=== PATIENT | female | born 1950 | race Caucasian/White ===

== ENCOUNTER 2021-10-08 17:37 | Emergency (ER) | payer MEDICARE ==
[~2021-10-08] VITALS: Ht 154.9 cm; Wt 64.4 kg
[2021-10-08] MEDS ORDERED: JANTOVEN5 MG PO (17:47)
[2021-10-08] MEDS ORDERED: CHILDREN'S ASPI81 M1 PO (17:47)
[2021-10-08] MEDS ORDERED: CALCIUM 500 +1 EACH PO (17:48)
[2021-10-08] MEDS ORDERED: LIPITOR40 MG PO (17:48)
[2021-10-08] MEDS ORDERED: LISINOPRIL20 MG PO (17:48)
[2021-10-08] MEDS ORDERED: TOPROL XL100 MG PO (17:49)
[2021-10-08] MEDS ORDERED: OMEPRAZOLE40 MG PO (17:49)
[2021-10-08] MEDS ORDERED: PROAIR HFA8.5 GM INH (17:49)
[2021-10-08 21:10] LABS: ABSOLUTE BASOPHILS 0.1 thou/uL (0.0-0.2); ABSOLUTE EOSINOPHILS 0.2 thou/uL (0.0-0.7); ABSOLUTE LYMPHOCYTES 1.8 thou/uL (0.8-5.3); ABSOLUTE MONOCYTES 0.6 thou/uL (0.0-1.2); ABSOLUTE NEUTROPHILS 7.3 thou/uL (1.6-8.1); BASOPHILS 0.6 %; EOSINOPHILS 1.9 %; HEMATOCRIT 36.6 % (37.0-47.0); HEMOGLOBIN 11.8 gm/dL (12.0-15.0); LYMPHOCYTES 18.2 %; MCH 27.8 pg (26.0-34.0); MCHC 32.3 g/dL (28.0-37.0); MCV 85.9 fL (80.0-100.0); MONOCYTES 6.3 %; NUCLEATED RBCS 0 /100WBC; PLATELET COUNT* 264 thou/uL (150-400); RBC 4.26 mil/uL (4.20-5.00)
[2021-10-08 21:19] LABS: CALCIUM 9.1 mg/dL (8.5-10.1); CREATININE 1.2 mg/dL (0.6-1.3); POTASSIUM 3.8 mmol/L (3.5-5.1)
[2021-10-08 21:24] LABS: ALBUMIN 3.3 g/dL (3.4-5.0); TOTAL BILIRUBIN 0.4 mg/dL (<0.1-1.0); TOTAL PROTEIN 7.6 g/dL (6.4-8.2)
[2021-10-08] MEDS ORDERED: PREDNISONE 20 M20 MG PO (22:00)
[2021-10-08 22:15] VITALS: BP 106/88
[2021-10-08 22:19] LABS: ESR (SEDRATE) 57 mm/hr (0-30)
== END 2021-10-08 22:15 | disposition home or self-care (01) ==
LOC: M.ERS 17:37
PROVIDERS: Physician Assistant
DX: M79.89 Other specified soft tissue disorders (principal); R21 Rash and other nonspecific skin eruption; Z95.810 Presence of automatic (implantable) cardiac defibrillator; Z79.82 Long term (current) use of aspirin; Z79.01 Long term (current) use of anticoagulants; Z79.899 Other long term (current) drug therapy